=== PATIENT | female | born 1965 | race Caucasian/White ===

== ENCOUNTER 2021-05-22 23:41 | Inpatient (IN) | payer MEDICARE, OTHER ==
[~2021-05-22] VITALS: Ht 165.1 cm; Wt 82.1 kg
--- NOTE | 2021-05-22 23:46 | NUR ---
Patient BIB Ambul[facility] unit [address] [facility] to have PET TEAM eval d/t screaming, yelling and attempting to elope at the facility. No SOB or labored breathing. Afebrile. Denies CP/pressure. No GI/ distress. Patient currently calm and cooperative. A/O x2-3. Patient not in any distress at this moment. Bed in lowest position and educated about safety precautions.
--- NOTE | 2021-05-22 23:49 | NUR ---
Dr. Thakur at bedside, MSE in progress.
[2021-05-23 00:38] LABS: *BILIRUBIN,URIN NEGATIVE (NEGATIVE); *BLOOD, URINE NEGATIVE (NEGATIVE); *CLARITY,URINE CLEAR (CLEAR); *KETONES,URINE NEGATIVE (NEGATIVE); *UROBILINOGEN,URINE 0.2 E.U./dl (NORMAL); LEUKOCYTE ESTERASE ,URINE NEGATIVE (NEGATIVE); NITRITE, URINE NEGATIVE (NEGATIVE); PH,URINE 7.5 (5.0-8.0); UGLUCOSE NEGATIVE (NEGATIVE)
[2021-05-23 00:44] LABS: *COLOR,URINE STRAW (YELLOW)
--- NOTE | 2021-05-23 00:49 | NUR ---
Called Kimmy from crisis team, no answer, left voicemail.
[2021-05-23] MEDS ORDERED: humulin R SUBCUT (00:55)
[2021-05-23] MEDS ORDERED: BENZ1TAB7 PO (00:55)
[2021-05-23] MEDS ORDERED: MAGN400O6 PO (00:55)
[2021-05-23] MEDS ORDERED: OXCA300T4 PO (00:55)
[2021-05-23] MEDS ORDERED: HALO10TA13 PO (00:55)
[2021-05-23] MEDS ORDERED: NA P133E RC (00:55)
[2021-05-23] MEDS ORDERED: OXCA600T5 PO (00:55)
[2021-05-23] MEDS ORDERED: HALO5TAB PO (00:55)
[2021-05-23] MEDS ORDERED: ACET-2154 PO (00:55)
[2021-05-23] MEDS ORDERED: BISA10SU61 RC (00:55)
--- NOTE | 2021-05-23 00:59 | NUR ---
Called Delaney from crisis team, stated her ETA is around 0200.
--- NOTE | 2021-05-23 01:23 | NUR ---
Patient started to get aggitated and attempted de-esculation techniques. Offered patient fluids, food and restroom privilages, decreased stimuli. Provided patient with safe environment and re-orientated to reality.
--- NOTE | 2021-05-23 01:41 | NUR ---
Delaney from crisis team at bedside to evaluate patient.
[2021-05-23] MEDS ORDERED: HALOPERIDOL LACTATE 5 MG/1 ML VIAL IM ONE (02:00)
[2021-05-23] MEDS ORDERED: LORAZEPAM 2 MG/1 ML VIAL IM ONE (02:00)
[2021-05-23] MEDS ORDERED: diphenhydrAMINE 50 MG/1 ML VIAL IM ONE (02:00)
[2021-05-23] MEDS ORDERED: LORAZEPAM 2 MG/1 ML VIAL ONE (02:04)
[2021-05-23] MEDS ORDERED: diphenhydrAMINE 50 MG/1 ML VIAL ONE (02:04)
[2021-05-23] MEDS ORDERED: HALOPERIDOL LACTATE 5 MG/1 ML VIAL ONE (02:04)
--- NOTE | 2021-05-23 03:03 | NUR ---
Gave report to [facility].
[2021-05-23 03:35] VITALS: BP 128/76
--- NOTE | 2021-05-23 03:36 | NUR ---
Pt. admitted to [facility]HU , under care of Dr. St and Dr. Boyce Dx: psychosis Belongs List completed
--- NOTE | 2021-05-23 04:19 | NUR ---
GPS: Admitted to unit earlier a 55 yr.old female under the care of /Parviz FARAH. Pt.is on a 72 hour hold for DTO/GD. Pt.was agitated,violent, had flight of ideas,yelling and trying to elope from her residential facility,per hold. Pt.is anxious,confused but manageable/re-directable upon admission. Pt.received emergency IM's in the E.R. prior to being transported to mhu. Skin assessment done/personal belongings list completed. Unit rules explained. Pt's advisement and pt's rights booklet given. Fall precautions initiated. Behavior monitoring continues.
[2021-05-23] MEDS ORDERED: LORAZEPAM 0.5 MG TABLET PO PRN (04:30)
[2021-05-23] MEDS ORDERED: MAGNESIUM HYDROXIDE 30 ML LIQUID UDC PO PRN (04:30)
[2021-05-23] MEDS ORDERED: ACETAMINOPHEN 325 MG TABLET PO PRN (04:30)
[2021-05-23] MEDS ORDERED: BLOOD SUGAR DIAGNOSTIC 1 EACH STRIP VI ONE (04:30)
--- NOTE | 2021-05-23 07:22 | NUR ---
EPIC EXCHANGE WAS CALLED TO NOTIFY DOCTOR TO RECONCILE THE MEDICATIONS.
[2021-05-23 07:30] VITALS: BP 124/61
--- NOTE | 2021-05-23 08:24 | NUR ---
Firearms Report: Retread Technician completed and submitted a [employer] firearms report for 5150 grave disability certification. A copy of report has been placed in patient chart.
--- NOTE | 2021-05-23 09:54 | NUR ---
SW Initial Discharge Plan: [facility] [place] [address]; ). This SW spoke with admin CJ who stated that pt will need a locked nursing facility. This SW attempted to contact [facility]ose[facility] ([phone]) but the number does not exist. SW will coordinate with pt and MD to help coordinate proper discharge.
--- NOTE | 2021-05-23 09:55 | NUR ---
SW Family Contact: This SW attempted to contact [facility]ose[facility] ([phone]) but the number does not exist.
--- NOTE | 2021-05-23 10:02 | NUR ---
Treatment Plan: Pt refused to sign treatment plan and was verbally aggressive.
[2021-05-23] MEDS: OXCARBAZEPINE 300 MG TABLET PO SCH ×4 (10:18→20:06)
--- NOTE | 2021-05-23 11:31 | NUR ---
Social Work Note/Substance Abuse Intervention: SW attempted to provided with a brief substance abuse intervention and referred to [facility] ([phone]), [facility] ([phone]), and [facility] ([phone]) for hx of amphetamine abuse. Pt refused to answer any questions.
[2021-05-23] MEDS: HALOPERIDOL 5 MG TABLET PO SCH ×2 (14:39→20:06)
[2021-05-23 15:17] VITALS: BP 153/87
[2021-05-23] MEDS ORDERED: BISACODYL 10 MG SUPP.RECT RC PRN (17:30)
[2021-05-23] MEDS ORDERED: FLEET ENEMA 133 ML BOTTLE RC PRN (17:30)
[2021-05-23 20:09] VITALS: BP 119/74
[2021-05-23] MEDS ORDERED: HALOPERIDOL 2 MG TABLET PO SCH (21:00)
--- NOTE | 2021-05-24 01:25 | NUR ---
GPS: Pt.still awake at this time. Talking to self and delusional. Easily irritable when being re-directed. Refused Ativan PO or Restoril when offered for sleep. Re-directed prn. Behavior monitoring continues for further escalation.
[2021-05-24] MEDS: OXCARBAZEPINE 300 MG TABLET PO SCH ×4 (08:59→20:29)
[2021-05-24] MEDS: HALOPERIDOL 5 MG TABLET PO SCH ×4 (08:59→20:29)
--- NOTE | 2021-05-24 12:12 | NUR ---
dr baron here to see patient with new orders and noted.
--- NOTE | 2021-05-24 12:52 | NUR ---
SNF Referral: This SW faxed patient's clinicals to [facility] for placement option ([phone]).
[2021-05-24 16:00] VITALS: BP 149/92
--- NOTE | 2021-05-24 18:00 | NUR ---
ALERT TO SELF WALKING UP AND DOWN THE [address] WAY GOING INTO OTHER PATIENTS ROOMS AND ON TWO OCCASIONS PULLED DOWN HER PANTS AND SHOWING HER BUTTOCKS HELPED AND ENCOURAGED TO LEAVE HER PANTS ON TO MAINTAIN PRIVACY.
[2021-05-24] MEDS: LORAZEPAM 1 MG TABLET PO PRN (19:27)
--- NOTE | 2021-05-24 19:27 | NUR ---
PATIENT NOTED TO BE AGGRESSIVE PUSHED ANOTHER PATIENT FOR NO REASON PATIENT TAKEN TO HER ROOM AND MEDICATED WITH ATIVAN ORDERED PATIENT ENCOURAGED TO STAY IN HER ROOM FOR THE MEAN TIME TO CALM DOWN AND SHE AGREED.
[2021-05-24 20:18] VITALS: BP 129/56
--- NOTE | 2021-05-25 02:00 | NUR ---
PATIENT IN BED SLEEPING AND RESTING WELL AT THIS TIME.
--- NOTE | 2021-05-25 06:47 | NUR ---
PATIENT SLEPT AT LONG INTERVALS EASILY AROUSABLE ON ROUNDS WAS QUIET WITH NO BEHAVIOR ISSUES AT THIS TIME.WILL CONTINUE TO OBSERVE AND PROVIDE SAFE AND THERAPEUTIC ENVIRONMENT AT ALL TIMES.
[2021-05-25 07:30] VITALS: BP_SYST 130; BP_DIAS 60; BP_DIAS 65
[2021-05-25] MEDS: OXCARBAZEPINE 300 MG TABLET PO SCH ×4 (09:11→21:10)
[2021-05-25] MEDS: HALOPERIDOL 5 MG TABLET PO SCH ×4 (09:11→21:10)
--- NOTE | 2021-05-25 12:08 | NUR ---
PILAR Individual Therapy: yarn worker met with patient for brief counseling to help address patients presenting problem paranoid thought content. Patient appears paranoid and delusional. Pt constantly calling this jingle writer "Nicol". Pt unable to have proper conversation due to her paranoia.
[2021-05-25 13:00] VITALS: BP 155/87
[2021-05-25 20:00] VITALS: BP 137/70
--- NOTE | 2021-05-26 06:27 | NUR ---
GPS: REMAIN CALM AND COOPERATIVE WITH MEDS AND CARE. SLEPT 10.45 HRS THROUGH THE NIGHT. NO BEHAVIOR ISSUES AT THIS TIME.WILL CONTINUE TO OBSERVE AND PROVIDE SAFE AND THERAPEUTIC ENVIRONMENT AT ALL TIMES.
[2021-05-26 07:30] VITALS: BP 111/51
[2021-05-26] MEDS: OXCARBAZEPINE 300 MG TABLET PO SCH ×4 (09:42→20:32)
[2021-05-26] MEDS: HALOPERIDOL 5 MG TABLET PO SCH ×4 (09:42→20:32)
--- NOTE | 2021-05-26 14:00 | NUR ---
Gps/Chief Cruiser- Patient pacing back and forth the hallway, laughing and tends to talked to herself. Needing redirections, compliant with routine meds.
[2021-05-26 16:00] VITALS: BP 117/59
[2021-05-26 20:09] VITALS: BP 120/81
[2021-05-26] MEDS: TEMAZEPAM 7.5 MG CAPSULE PO PRN (21:37)
[2021-05-27] MEDS: LORAZEPAM 1 MG TABLET PO PRN (04:10)
--- NOTE | 2021-05-27 04:12 | NUR ---
patient c/o anxiety. ativan 1 mg po given.
--- NOTE | 2021-05-27 05:12 | NUR ---
PATIENT IS RESTING ON BED QUIETLY. PRN FOR ANXIETY EFFECTIVE.
--- NOTE | 2021-05-27 05:53 | NUR ---
GPS: REMAIN CALM AND COOPERATIVE WITH MEDS AND CARE. SLEPT 6 HRS THROUGH THE NIGHT AFTER SLEEPING MEDS GIVEN. NO BEHAVIOR ISSUES AT THIS TIME. WILL CONTINUE TO OBSERVE AND PROVIDE SAFE AND THERAPEUTIC ENVIRONMENT AT ALL TIMES. CONTINUE. CONTINUE PLAN OF CARE.
[2021-05-27 08:12] VITALS: BP 145/76
[2021-05-27] MEDS: HALOPERIDOL 5 MG TABLET PO SCH ×4 (08:48→20:19)
[2021-05-27] MEDS: OXCARBAZEPINE 300 MG TABLET PO SCH ×4 (08:48→20:19)
--- NOTE | 2021-05-27 14:37 | NUR ---
Gps/Oral Pathologist- Had been quiet most of the morning, cooperative and had been redirectable, compliant with her routine meds. Prompted to attend her group tx
[2021-05-27 15:59] VITALS: BP 125/65
[2021-05-27 20:14] VITALS: BP 136/71
[2021-05-28] MEDS: MAG HYDROX/AL HYDROX/SIMETH 30 ML LIQUID UDC PO PRN (00:55)
--- NOTE | 2021-05-28 07:25 | NUR ---
PATIENT REFUSED BLOOD DRAWN. MULTIPLE REDIRECTION GIVEN INCLUDING THE NEED TO COMPLY WITH LABS TO IMPROVE HER HEALTH, YET INEFFECTIVE. SHE STATED, "I AM JEW OF THE LATE DAYS AND MY RELIGIONS DOES NOT PERMIT BLOOD TAKEN FORM ME, I KNOW MY RIGHTS AND YOU CAN'T FORCE ME". WILL CONTINUE TO MONITOR.
[2021-05-28 08:03] VITALS: BP 133/76
[2021-05-28] MEDS: HALOPERIDOL 5 MG TABLET PO SCH ×4 (08:07→20:30)
[2021-05-28] MEDS: OXCARBAZEPINE 300 MG TABLET PO SCH ×4 (08:07→20:30)
[2021-05-28 16:00] VITALS: BP 131/81
[2021-05-28 20:00] VITALS: BP 132/81
[2021-05-28] MEDS: LORAZEPAM 1 MG TABLET PO PRN (20:30)
--- NOTE | 2021-05-29 06:56 | NUR ---
Patient slept 6.45 hours and was up early this morning for a shower because she wet the bed. Tech Intern did not notice any preoccupation with internal stimuli. Continuing to monitor for behavior escalation.
[2021-05-29 07:30] VITALS: BP 123/56
[2021-05-29] MEDS: HALOPERIDOL 5 MG TABLET PO SCH ×4 (09:42→20:05)
[2021-05-29] MEDS: OXCARBAZEPINE 300 MG TABLET PO SCH ×4 (09:43→20:05)
[2021-05-29] MEDS: MAG HYDROX/AL HYDROX/SIMETH 30 ML LIQUID UDC PO PRN (12:59)
[2021-05-29 15:15] VITALS: BP 117/74
[2021-05-29 20:12] VITALS: BP 126/82
[2021-05-30 07:30] VITALS: BP 158/89
[2021-05-30] MEDS: HALOPERIDOL 5 MG TABLET PO SCH ×4 (08:12→20:08)
[2021-05-30] MEDS: OXCARBAZEPINE 300 MG TABLET PO SCH ×4 (08:12→20:08)
--- NOTE | 2021-05-30 11:55 | NUR ---
Court Hearing: Patient's court hearing for 0620 was today and it was upheld for GD and danger to others.
[2021-05-30] MEDS: MAG HYDROX/AL HYDROX/SIMETH 30 ML LIQUID UDC PO PRN (12:28)
--- NOTE | 2021-05-30 13:10 | NUR ---
Social Work Note/Substance Abuse Intervention: Patient was provided with a brief substance abuse intervention and referred to [facility] ([phone]), [facility] ([phone]), and [facility] ([phone]).
[2021-05-30 15:09] VITALS: BP 115/59
[2021-05-30 20:19] VITALS: BP 126/72
[2021-05-31 07:30] VITALS: BP 130/65
--- NOTE | 2021-05-31 07:30 | NUR ---
NURSE REPORT Report given by night nurse Britany and this nurse assume care of patient. Received patient awake and alert. Ambulatory. VSS. Afeb. No c/o pain or discomfort.
[2021-05-31] MEDS: OXCARBAZEPINE 300 MG TABLET PO SCH ×4 (09:19→20:59)
[2021-05-31] MEDS: HALOPERIDOL 5 MG TABLET PO SCH ×3 (09:19→21:02)
--- NOTE | 2021-05-31 13:00 | NUR ---
NURSE CARE Patient taking meds whole. No c/o pain or discomfort. Not talkiing loudly this am.
--- NOTE | 2021-05-31 14:52 | NUR ---
NURSE REPORT Report given to charge nurse Kay to assume care of patient. SBAR given. Charge nurse aware of patient. Sanaz Jackson RN
--- NOTE | 2021-05-31 15:02 | NUR ---
SNF Contact: This SW received a call from [facility] admin from [facility] for who stated they cannot accept pt due to behavior issues.
--- NOTE | 2021-05-31 15:03 | NUR ---
Autocad Designer Contact: This SW sent clinicals to colby Davison for SNF placement and he stated [facility] and [facility] denied pt. Saman stated that [facility] accepted pt.
--- NOTE | 2021-05-31 15:29 | NUR ---
Individual Therapy: reinforcing iron and rebar workers met with patient for brief counseling on patient's presenting problem paranoid thought content. Pt appears paranoid and delusional. Pt laughing inappropriately. Pt calling this SW "Nicol". Pt unable to focus to conduct therapy at this time.
[2021-05-31] MEDS: MAG HYDROX/AL HYDROX/SIMETH 30 ML LIQUID UDC PO PRN (15:46)
[2021-05-31 16:06] VITALS: BP 151/82
[2021-05-31 20:17] VITALS: BP 146/68
--- NOTE | 2021-06-01 07:25 | NUR ---
NURSE REPORT Report obtained from night nurse Michelle and this nurse assumed care of patient. No c/o pain or discomfort.
[2021-06-01 07:30] VITALS: BP 153/82
[2021-06-01] MEDS: HALOPERIDOL 5 MG TABLET PO SCH ×3 (09:28→21:03)
[2021-06-01] MEDS: OXCARBAZEPINE 300 MG TABLET PO SCH ×4 (09:28→21:03)
[2021-06-01 16:00] VITALS: BP 151/72
--- NOTE | 2021-06-01 16:00 | NUR ---
NURSE NOTES VSS. Afeb. BP 151/72. On Haldol and Trileptall. No c/o pain or discomfort. Ambulates in hallway or in room.
--- NOTE | 2021-06-01 19:27 | NUR ---
NURSE REPORT Report given to anne nurse Michelle to assume care of patient. Kardex given. VSS. Afeb. BP 151/72 and 153/89. Not sure what happened with one of the nurse aide. She stated she was making her rounds, and the patient started chasing after her. She hid behind the BP machines and patient found her, stating "I don't k now why you are doing that to me. Patient starting yelling "I demand to be transferred to [facility]." Sanaz Jackson
[2021-06-01 20:20] VITALS: BP 155/86
[2021-06-02 07:30] VITALS: BP 123/57
[2021-06-02] MEDS: HALOPERIDOL 5 MG TABLET PO SCH ×3 (08:17→20:29)
[2021-06-02] MEDS: OXCARBAZEPINE 300 MG TABLET PO SCH ×4 (08:17→20:29)
[2021-06-02 16:00] VITALS: BP 119/60
[2021-06-02] MEDS: MAG HYDROX/AL HYDROX/SIMETH 30 ML LIQUID UDC PO PRN (18:46)
[2021-06-02 21:39] VITALS: BP 142/70
--- NOTE | 2021-06-03 01:07 | NUR ---
RECEIVED HER IN BED. CALM AND COOPERATIVE WITH MEDS AND CARE. MOOD LABILE. VISUAL CHECKS MADE ON HER FOR SAFETY.WILL CONTINUE TO MONITOR.O.
--- NOTE | 2021-06-03 06:15 | NUR ---
SHE SLEPT FOR 7:45 HOURS.
[2021-06-03] MEDS: MAG HYDROX/AL HYDROX/SIMETH 30 ML LIQUID UDC PO PRN (06:27)
[2021-06-03 08:09] VITALS: BP 133/71
[2021-06-03] MEDS: HALOPERIDOL 5 MG TABLET PO SCH ×3 (08:58→20:21)
[2021-06-03] MEDS: OXCARBAZEPINE 300 MG TABLET PO SCH ×4 (08:58→20:21)
[2021-06-03 16:33] VITALS: BP 155/87
[2021-06-03 20:00] VITALS: BP 138/76
--- NOTE | 2021-06-04 06:18 | NUR ---
This patient was up early and took a shower. Knot Picker Cloth noticed the patient was hyper and delusional but not aggressive. [place] bright affect. Patient slept 5.15 hours last night. No acute behavioral issues at this time. Monitoring for any escalation.
[2021-06-04 07:56] VITALS: BP 122/69
[2021-06-04] MEDS: HALOPERIDOL 5 MG TABLET PO SCH ×3 (09:10→20:04)
[2021-06-04] MEDS: OXCARBAZEPINE 300 MG TABLET PO SCH ×4 (09:10→20:04)
[2021-06-04 17:01] VITALS: BP 145/70
[2021-06-04] MEDS: LORAZEPAM 1 MG TABLET PO PRN (20:04)
[2021-06-04 20:15] VITALS: BP 134/68
[2021-06-05 07:30] VITALS: BP 127/81
[2021-06-05] MEDS: OXCARBAZEPINE 300 MG TABLET PO SCH ×4 (08:43→20:21)
[2021-06-05] MEDS: MAG HYDROX/AL HYDROX/SIMETH 30 ML LIQUID UDC PO PRN (08:43)
[2021-06-05] MEDS: HALOPERIDOL 5 MG TABLET PO SCH ×3 (08:43→20:21)
[2021-06-05 15:45] VITALS: BP 161/92
[2021-06-05] MEDS: OLANZAPINE 2.5 MG TABLET PO SCH (18:01)
[2021-06-05 20:43] VITALS: BP 152/78
[2021-06-06] MEDS: LORAZEPAM 1 MG TABLET PO PRN (04:02)
--- NOTE | 2021-06-06 04:05 | NUR ---
GPS: Pt.is anxious,paranoid,suspicious,delusional and intrusive. Easily irritable when being re-directed. Poor insight to present situation. Encouraged to get more sleep/rest. Talking to herself inside her room. Ativan 1mg PO given. Will monitor effectiveness.
[2021-06-06 07:30] VITALS: BP 156/77
[2021-06-06] MEDS: OXCARBAZEPINE 300 MG TABLET PO SCH ×4 (08:19→20:09)
[2021-06-06] MEDS: HALOPERIDOL 5 MG TABLET PO SCH ×3 (08:19→20:08)
[2021-06-06] MEDS: OLANZAPINE 2.5 MG TABLET PO SCH ×2 (08:19→16:27)
--- NOTE | 2021-06-06 10:41 | NUR ---
Individual Therapy: plastics factory worker met with patient for brief counseling on patient's presenting problem paranoid thought content. Pt appears paranoid and delusional. Pt blankly staring at this SW and did not want to conduct therapy at this time.
--- NOTE | 2021-06-06 13:01 | NUR ---
[facility] Contact: This SW contacted admissions ([phone]) per pt's request stated they are not a psych facility and they are not locked. This SW spoke with continuous still operator.
--- NOTE | 2021-06-06 13:11 | NUR ---
SW Note: This SW spoke with pt and stated that [facility] is not taking psych patients and that they not a locked facility. This SW informed pt this information. This SW expressed that she is accepted at [facility] and she was agreeable with this.
[2021-06-06 15:50] VITALS: BP 133/61
[2021-06-06 20:13] VITALS: BP 130/68
[2021-06-07 07:30] VITALS: BP 120/64
[2021-06-07] MEDS: OLANZAPINE 2.5 MG TABLET PO SCH ×2 (09:09→17:52)
[2021-06-07] MEDS: OXCARBAZEPINE 300 MG TABLET PO SCH ×4 (09:09→20:46)
[2021-06-07] MEDS: HALOPERIDOL 5 MG TABLET PO SCH ×3 (09:09→20:46)
[2021-06-07 16:00] VITALS: BP 140/82
--- NOTE | 2021-06-07 19:12 | NUR ---
left in bed AAOX4. vitals stable no c/of pain compliant with medications.
[2021-06-07 20:21] VITALS: BP 150/80
[2021-06-08] MEDS: MAG HYDROX/AL HYDROX/SIMETH 30 ML LIQUID UDC PO PRN (03:08)
[2021-06-08 07:30] VITALS: BP 130/58
[2021-06-08] MEDS: HALOPERIDOL 5 MG TABLET PO SCH ×3 (08:14→20:35)
[2021-06-08] MEDS: OXCARBAZEPINE 300 MG TABLET PO SCH ×4 (08:14→20:36)
--- NOTE | 2021-06-08 09:41 | NUR ---
Received pt. AAOx4. vitals stable no c/of pain compliant with schedule medications and ate breafast with no complains. Will continue with care plan.
[2021-06-08 16:00] VITALS: BP 107/54
[2021-06-08 20:00] VITALS: BP 114/73
--- NOTE | 2021-06-09 06:15 | NUR ---
Patient slept 8.15 hrs.Compliant with medication and care. No episodes of aggressive behaviors.
[2021-06-09 07:51] VITALS: BP 126/76
[2021-06-09] MEDS: OXCARBAZEPINE 300 MG TABLET PO SCH ×4 (08:12→20:12)
[2021-06-09] MEDS: HALOPERIDOL 5 MG TABLET PO SCH ×3 (08:12→20:12)
[2021-06-09 13:00] VITALS: BP 160/90
[2021-06-09] MEDS: ARIPIPRAZOLE 5 MG TABLET PO SCH ×2 (16:30→20:11)
[2021-06-09] MEDS: LORAZEPAM 1 MG TABLET PO PRN (20:12)
[2021-06-09 20:13] VITALS: BP 121/76
[2021-06-09] MEDS: MAG HYDROX/AL HYDROX/SIMETH 30 ML LIQUID UDC PO PRN (21:41)
--- NOTE | 2021-06-10 05:11 | NUR ---
Received the patient at the beginning of the shift pacing up and down the brenner. When credit underwriter talked with the patient it was clear that the patient was having delusions and hallucinations. When trying to engage in any meaningful conversation, the patients speech was tangental. The patient was not aggressive however and was easily redirectable. The patient is medication compliant, but preoccupied by internal stimuli. Continuing to monitor the patient for safety and behavior escalation d/t previous labile episodes.
[2021-06-10 07:33] VITALS: BP 141/72
[2021-06-10] MEDS: ARIPIPRAZOLE 5 MG TABLET PO SCH ×4 (08:03→20:11)
[2021-06-10] MEDS: HALOPERIDOL 5 MG TABLET PO SCH ×3 (08:03→20:09)
[2021-06-10] MEDS: OXCARBAZEPINE 300 MG TABLET PO SCH ×4 (08:03→20:10)
[2021-06-10 16:33] VITALS: BP 144/86
[2021-06-10] MEDS: TEMAZEPAM 7.5 MG CAPSULE PO PRN (23:08)
[2021-06-10] MEDS: LORAZEPAM 1 MG TABLET PO PRN (23:09)
--- NOTE | 2021-06-11 05:53 | NUR ---
Patient slept 0.00 hours last night. All night long the patient was antagonizing the staff, paranoid and accusatory remarks were made. Patient was difficult to redirect. Multiple requests for food. Inappropriate interactions with peers. The patients room mate was moved because this patient would not stop talking and would not turn the light off. At one point the patient banged her head against the wall. The business writer attempted to calm the patient and provide reassurance. The patient refuses to take Abilify and needed prompting and encouragement to take other medications. Children'S Nursery Assistant monitoring the patient closely for behavior escalation and monitoring the patients interactions, making sure they do not upset the unit. Firm limits have been set with this patient at this time.
[2021-06-11 07:30] VITALS: BP 160/80
[2021-06-11] MEDS: ARIPIPRAZOLE 5 MG TABLET PO SCH ×4 (08:00→20:48)
[2021-06-11] MEDS: OXCARBAZEPINE 300 MG TABLET PO SCH ×4 (08:05→20:29)
[2021-06-11] MEDS: HALOPERIDOL 5 MG TABLET PO SCH ×3 (08:05→20:29)
--- NOTE | 2021-06-11 08:24 | NUR ---
PT NOTED QUITE PSYCHOTIC AT THIS TIME. PACING UNIT HALLWAY, TALKING TO SELF, LOUDLY RESPONDING TO INTERNAL STIMULI. PT IS FREQUENTLY INAPPROPRIATELY LAUGHING UNCONTROLLABLY. EXTREMELY PARANOID AND DELUSIONAL. PT QUITE NONSENSICAL WITH RESPONSES, VERY BIZARRE. PT IS DIFFICULT TO REDIRECT AT TIMES AND CAN GET QUITE AGITATED. PT REFUSED AM ABILIFY AT THIS TIME.
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
[2021-06-11 16:00] VITALS: BP 168/90
[2021-06-11 19:57] VITALS: BP 166/78
[2021-06-11] MEDS: MAG HYDROX/AL HYDROX/SIMETH 30 ML LIQUID UDC PO PRN (20:29)
[2021-06-11] MEDS: LORAZEPAM 1 MG TABLET PO PRN (20:43)
[2021-06-11] MEDS ORDERED: diphenhydrAMINE 50 MG/1 ML VIAL IM ONE (21:30)
[2021-06-11] MEDS ORDERED: LORAZEPAM 2 MG/1 ML VIAL IM ONE (21:30)
[2021-06-11] MEDS ORDERED: HALOPERIDOL LACTATE 5 MG/1 ML VIAL IM ONE (21:30)
--- NOTE | 2021-06-11 23:59 | NUR ---
GPS MEDICATION ADMINISTRATION CLARIFICATION : All medications given to this patient on 06/11/21 from 1900 till now were given by this proposal writer.
[2021-06-12] MEDS: TEMAZEPAM 7.5 MG CAPSULE PO PRN (01:14)
--- NOTE | 2021-06-12 04:01 | NUR ---
Received patient at the start of the shift pacing in the brenner and talking to other patient and staff using vulgar language. The patients behavior escalated to the point where she was banging her head against the wall, crawling on the floor, yelling profanities and not responding to any limit setting. The patient continued to disrupt the unit by going into other patients rooms and climbing in the bed with them. The oral routine medications had zero affect on this patient, even the PRN medications were noneffective. Dr. Bettencourt was notified and orders were received for an IM injection. When the time came to give the medication, the patient was found in a corner of another patients room, laying on the floor, without any cloths on the lower half of her body and legs spread wide open. It took multiple staff and security to get the patient off the floor. After the injection this patient continued with the same behavior. Paranoid , hyperverbal speech. Angry and aggressive. The patient was monitored at the nurses station for many hours. Yelling at everyone and still threatening staff , spewing crude comments and trying to hide. Eventually this rewriter went with the patient to her room and stayed there , monitoring her closely. VS remained stable. Patient remained in her room, responding to internal stimuli for some time and now fell asleep. Bed alarm is on for safety. This rewriter noted that the patient has not sleep for 36 or more hours by this time.
[2021-06-12 07:30] VITALS: BP 131/74
--- NOTE | 2021-06-12 07:34 | NUR ---
GPS NOTE; This patient had an order last night from Dr. Bettencourt for 1mg of Ativan IM. one time dose. Medication was removed from the Pyxis and Philly Bolton RN witnessed the waste of 1mg from the 2MG Vial. Discrepancy resolved at this time.
[2021-06-12] MEDS: OXCARBAZEPINE 300 MG TABLET PO SCH ×5 (08:42→21:02)
[2021-06-12] MEDS: ARIPIPRAZOLE 5 MG TABLET PO SCH ×4 (08:42→21:01)
[2021-06-12] MEDS: HALOPERIDOL 5 MG TABLET PO SCH ×4 (08:42→21:01)
[2021-06-12] MEDS: OLANZAPINE ZYDIS 5 MG TAB.RAPDIS PO SCH ×2 (11:30→16:18)
--- NOTE | 2021-06-12 14:55 | NUR ---
Court Hearing: Patient's court hearing for 30 day was today and it was upheld for GD.
[2021-06-12 15:06] VITALS: BP 125/72
--- NOTE | 2021-06-12 15:33 | NUR ---
GPS: Nursing Notes: Mood Disturbance: Manic or Labile: Patient is awake and responding to her name, poor impulse control, gets easily irritable when redirected, believes that she is the [facility], refusing her Zyprexa PO at 12:45, "No, I do not take that medication..", "I am the [facility]..", redirected and reoriented during shift, forgetful at times, loud and pressured speech, resistant with nursing care, believes that she is leaving today, stated "Call [employer].. I am leaving... I am not staying here for 30 days.. I am the [facility]..", unable to formulate a viable plan for self care, continue with treatment plan.
[2021-06-12] MEDS: LORAZEPAM 1 MG TABLET PO PRN (19:49)
[2021-06-12 20:03] VITALS: BP 132/70
--- NOTE | 2021-06-13 05:44 | NUR ---
Received Pt in bed sleeping arouses easily. Appeared depressed and guarded, did not want to speak to staff initially. When approached later, Pt was more receptive and friendly, and took her medications at that time. Pt was withdrawn and isolative for the entire shift, refusing snacks, and refusing to come out of her room. Appears internally preoccupied, exhibits blunted affect, and gives minimal disclosure. Able to verbally contract for safety. VS stable, denied pain.
[2021-06-13 07:30] VITALS: BP 143/67
[2021-06-13] MEDS: OXCARBAZEPINE 300 MG TABLET PO SCH ×4 (08:29→20:08)
[2021-06-13] MEDS: HALOPERIDOL 5 MG TABLET PO SCH ×3 (08:29→20:08)
[2021-06-13] MEDS: OLANZAPINE ZYDIS 5 MG TAB.RAPDIS PO SCH ×2 (08:29→17:04)
[2021-06-13] MEDS: ARIPIPRAZOLE 5 MG TABLET PO SCH ×3 (08:29→20:09)
[2021-06-13 15:54] VITALS: BP 119/59
[2021-06-13 20:05] VITALS: BP 124/74
--- NOTE | 2021-06-13 22:28 | NUR ---
Received patient in her bed, med compliant, interacts with staff and certain peers. Patient has semi fair insight and semi fair judgment. Patient will remain in a psych facility for further evaluation and treatment.
[2021-06-14 07:51] VITALS: BP 90/42
[2021-06-14] MEDS: OLANZAPINE ZYDIS 5 MG TAB.RAPDIS PO SCH ×2 (10:04→18:18)
[2021-06-14] MEDS: OXCARBAZEPINE 300 MG TABLET PO SCH ×4 (10:04→20:38)
[2021-06-14] MEDS: ARIPIPRAZOLE 5 MG TABLET PO SCH ×3 (10:04→20:37)
[2021-06-14] MEDS: HALOPERIDOL 5 MG TABLET PO SCH ×3 (10:12→20:38)
--- NOTE | 2021-06-14 10:54 | NUR ---
Individual Therapy: grease rack worker met with patient for brief counseling on patient's presenting problem paranoid thought content. Pt appears less paranoid thoughts. Patient appeared to be quiet and was sleepy. Pt did not want to conduct therapy at this time.
[2021-06-14 15:37] VITALS: BP 130/68
[2021-06-14 21:02] VITALS: BP 117/58
[2021-06-15 07:30] VITALS: BP 114/54
--- NOTE | 2021-06-15 08:05 | NUR ---
DISCHARGE NOTE: Patient will be discharged to shelter facility, [address] [address] ([phone]) via ambulance transportation at 12PM. odd jobs day worker spoke with Admin ([phone]), who stated patient will be accepted at the facility today. Patient does not have any family members at this time. Patient is alert and oriented x2 and is unable to plan for self-care. Patient denies any suicidal or homicidal ideation. Patient is aware and agreeable with discharge plans. Patient will continue to follow-up with (Psychiatrist) Dr. St and (Tack Picker) Dr. Romano at [facility]. Patient was provided with resources to [facility] ([phone]), [facility] ([phone]), and [facility] ([phone]) for alcohol abuse. Patient presents with euthymic mood and congruent affect.
[2021-06-15] MEDS: OXCARBAZEPINE 300 MG TABLET PO SCH ×2 (08:38→12:13)
[2021-06-15] MEDS: OLANZAPINE ZYDIS 5 MG TAB.RAPDIS PO SCH (08:38)
[2021-06-15] MEDS: ARIPIPRAZOLE 5 MG TABLET PO SCH (08:38)
[2021-06-15] MEDS: HALOPERIDOL 5 MG TABLET PO SCH (08:46)
[2021-06-15] MEDS: MAG HYDROX/AL HYDROX/SIMETH 30 ML LIQUID UDC PO PRN (08:49)
--- NOTE | 2021-06-15 13:54 | NUR ---
Discharged patient to [facility], AOx2. On room air. vital signs WNL. No signs of acute distress. Patient denies SI/ HI. Patient denies pain/ discomfort. Discharge documents signed. Belongings accounted for and belongings list signed. ID armband removed. Patient left unit via ambulance gurney. Nursing report given to VERENICE Lowery of [facility].
== END 2021-06-15 13:40 | DRG 885 ==
LOC: ER 23:54 → GPS 05-23 02:59
PROVIDERS: ADMIT Psychiatry & Neurology Psychosomatic Medicine; ATTEND Internal Medicine
DX: F25.0 Schizoaffective disorder, bipolar type (principal); Z59.0 Homelessness; E66.9 Obesity, unspecified; Z68.31 Body mass index [BMI] 31.0-31.9, adult; Z91.19 Patient's noncompliance with other medical treatment and regimen; F09 Unspecified mental disorder due to known physiological condition; F15.11 Other stimulant abuse, in remission
CPT/HCPCS: J1200; J1630; J2060

== ENCOUNTER 2022-05-11 14:03 | Inpatient (IN) | payer MEDICARE, OTHER ==
[~2022-05-11] VITALS: Ht 165.1 cm; Wt 85.7 kg
[~2022-05-11 14:03] MED LIST: ACET-2154 PO; BISA10SU61 RC; MAGN400O6 PO; NA P133E RC; humulin R SUBCUT
[2022-05-11] MEDS ORDERED: LORAZEPAM 2 MG/1 ML VIAL IM ONE (14:30)
[2022-05-11] MEDS ORDERED: ZIPRASIDONE MESYLATE 20 MG VIAL IM ONE ×2 (14:30→14:35)
[2022-05-11] MEDS ORDERED: LORAZEPAM 2 MG/1 ML VIAL ONE (14:36)
[2022-05-11 15:17] LABS: *BILIRUBIN,URIN NEGATIVE (NEGATIVE); *BLOOD, URINE NEGATIVE (NEGATIVE); *CLARITY,URINE CLEAR (CLEAR); *COLOR,URINE LIGHT YELLOW (YELLOW); *KETONES,URINE NEGATIVE (NEGATIVE); *UROBILINOGEN,URINE 0.2 E.U./dl (NORMAL); LEUKOCYTE ESTERASE ,URINE NEGATIVE (NEGATIVE); NITRITE, URINE NEGATIVE (NEGATIVE); PH,URINE 5.5 (5.0-8.0); UGLUCOSE 2+ (NEGATIVE)
[2022-05-11] MEDS ORDERED: MIDAZOLAM HCL 2 MG/2 ML VIAL ONE (15:24)
[2022-05-11] MEDS ORDERED: MIDAZOLAM HCL 5 MG/ML VIAL ONE (15:25)
[2022-05-11 15:27] LABS: *AMPHETAMINE, URINE NEGATIVE (NEGATIVE); *CANNABINOID, URINE NEGATIVE (NEGATIVE); *COCCAINE, URINE NEGATIVE (NEGATIVE); *OPIATE, URINE NEGATIVE (NEGATIVE); *PHENCYCLIDINE SCREEN,URINE NEGATIVE (NEGATIVE)
[2022-05-11] MEDS ORDERED: MIDAZOLAM HCL 2 MG/2 ML VIAL IM ONE ×2 (15:30)
[2022-05-11] MEDS ORDERED: KETAMINE HCL 500 MG/10 ML INJ IM ONE (16:00)
[2022-05-11 16:07] LABS: HEMATOCRIT 35.5 % (31.2-41.9); MEAN CORPUSCULAR HEMOGLOBIN 28.1 uug (24.7-32.8); PLATELET COUNT (AUTO) 270 K/uL (179-408)
--- NOTE | 2022-05-11 16:10 | NUR ---
Versed effective, so ketamine not necessary. Used velcro restraints briefly while drawing labs, removed foot restraints right after. Pt fell asleep, wrist restraints removed about 5 minutes after.
[2022-05-11 16:12] LABS: CARBON DIOXIDE 30 mmol/L (21-32); CHLORIDE 102 mmol/L (98-107); CREATININE 0.7 mg/dL (0.6-1.3); GLUCOSE 229 mg/dL (74-106); POTASSIUM 3.9 mmol/L (3.5-5.1); UREA NITROGEN, BLOOD 17 mg/dL (7-18)
[2022-05-11 16:18] LABS: ACETAMINOPHEN < 2.0 ug/mL (10-30); ALANINE AMINOTRANSFERASE 28 U/L (14-59); ALKALINE PHOSPHATASE 91 U/L (50-136); ASPARTATE AMINOTRANSFERASE 8 U/L (15-37); BILIRUBIN,DIRECT < 0.1 mg/dL (0.0-0.2); BILIRUBIN,TOTAL 0.1 mg/dL (0.2-1.0); TOTAL PROTEIN, SERUM 7.3 g/dL (6.4-8.2)
[2022-05-11 16:22] LABS: ETHANOL < 3 MG/DL (0-0)
--- NOTE | 2022-05-11 17:26 | NUR ---
Pt medically cleared by Dr. Coon.
[2022-05-11] MEDS ORDERED: MAGNESIUM HYDROXIDE 30 ML LIQUID UDC PO PRN (20:15)
[2022-05-11] MEDS ORDERED: MAG HYDROX/AL HYDROX/SIMETH 30 ML LIQUID UDC PO PRN (20:15)
[2022-05-11] MEDS ORDERED: ACETAMINOPHEN 325 MG TABLET PO PRN (20:15)
[2022-05-11] MEDS ORDERED: BLOOD SUGAR DIAGNOSTIC 1 EACH STRIP VI ONE (20:30)
--- NOTE | 2022-05-11 20:40 | NUR ---
Pt transfered to [facility] by TEXTILE DESIGNS SALES REPRESENTATIVE via gourney with all belongings.
[2022-05-11] MEDS ORDERED: INSULIN REGULAR, HUMAN 300 UNIT/3 ML VIAL SQ PRN (20:45)
[2022-05-11] MEDS ORDERED: DEXTROSE 50% 50 ML DISP.SYRIN IV PRN (20:45)
[2022-05-11] MEDS ORDERED: FLEET ENEMA 133 ML BOTTLE RC PRN (20:45)
[2022-05-11] MEDS: BLOOD SUGAR DIAGNOSTIC 1 EACH STRIP VI SCH (20:48)
--- NOTE | 2022-05-11 22:00 | NUR ---
GPS: Admitted to unit earlier a 56 yr.old female who was medically cleared in the E.R. who's already on a 14 day hold for GD. Pt.will be under the care of /GITA Stewart. Pt.arrived via gurney and was assisted to her bed. Pt.is somewhat sedated due to receiving IM's in the E.R. Pt.is uncooperative during admission process. Refuses to sign papers/refuses to be interviewed,refuses vital signs check,refuses body check and refuses blood sugar check. Pt.went to sleep right away. Pt's rights booklet placed at pt's table. Safe environment provided. Safety checks Q15 minutes initiated. Will continue to monitor. Pt.not aggressive at this time.
--- NOTE | 2022-05-12 02:52 | NUR ---
GPS: Pt.is awake at this time. Observed to be talking to self. Delusional,non-sensical. Encouraged to go back to sleep. Refused prn meds when offered. Re-directed prn. Will continue to monitor for further escalation of behavior.
--- NOTE | 2022-05-12 04:06 | NUR ---
GPS: Pt.has been out of her room few times and has been asking for food. Easily agitated when being re-directed. Continues to be delusional and trying to test limits. Continues to refuse prn med. Quiet environment provided to facilitate sleep. Will continue to monitor.
[2022-05-12] MEDS: BLOOD SUGAR DIAGNOSTIC 1 EACH STRIP VI SCH ×2 (06:06→11:30)
--- NOTE | 2022-05-12 06:18 | NUR ---
GPS: Pt.refused blood sugar check at this time despite numerous attempts by staff. Remains delusional,easily irritable,intrusive and responding to internal stimuli. Re-directed frequently. No increased agitation noted. Poor insight to her mental illness. Safety emphasized. Will continue to monitor behavior.
[2022-05-12 07:33] VITALS: BP 108/75
--- NOTE | 2022-05-12 07:59 | NUR ---
Gps/Crown Pouncer- Pacing back and forth the hallway, singing out loud, talking to herself, needed redirections from time to time , follow simple direction .
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
[2022-05-12 16:10] VITALS: BP 98/73
[2022-05-12] MEDS: OXCARBAZEPINE 150 MG TABLET PO SCH (17:28)
[2022-05-12 19:58] VITALS: BP 133/79
[2022-05-12] MEDS: LORAZEPAM 0.5 MG TABLET PO PRN (20:14)
[2022-05-12] MEDS: ATORVASTATIN 40 MG TABLET PO SCH (20:14)
[2022-05-12] MEDS: OLANZAPINE 5 MG TABLET PO SCH ×3 (20:28→21:16)
--- NOTE | 2022-05-13 05:08 | NUR ---
Received patient ,pacing up and down the brenner. Verbally arguing at times with another patient that was sitting in a gisel chair. It is noticed that the patient is responding to internal stimuli and non stop rambles or sings.. This patient is hyperverbal with tangental speech. This writer technical publications is unable to engage in any meaningful conversation with her. At the start of the shift, the patient refused to take medications. But after encouragement and offering of snacks to go along with the medications, the patient agreed. The patient took a shower in the middle of the night and has slept 0 hours. She sings, while walking around the unit, has poor impulse control , no situational awareness but can be momentarily redirected. Safety Stratiges are in place . Continuing to monitor for compliance with medications and the unit rules, plus any s/s of behavior escalation.
--- NOTE | 2022-05-13 08:49 | NUR ---
Gps/Prepared Foods Supervisor- Patient sleeping during the initial rounds, in no sign of any distress. Per report patient did not sleep last night , will monitor sleeping hours.
[2022-05-13] MEDS: OXCARBAZEPINE 150 MG TABLET PO SCH ×2 (10:03→18:17)
[2022-05-13] MEDS: METFORMIN HCL 500 MG TABLET PO SCH (10:04)
--- NOTE | 2022-05-13 10:10 | NUR ---
Gps/Business Line Controller-Patient awake, ate late breakfast . Reviewed routine medication , hesitancy noted, claimed she does not take any psychotropic medications, it does not agree with her, asking to talk to her previous Psychiatrist. After prompting, patient decided to take her meds.
--- NOTE | 2022-05-13 11:00 | NUR ---
Gps/Supervisor Commissary Production- Patient agreed to have her hair cut in front of the 3 staff, offered to shower after , refused at this time, will re offer at a later times. Patient needing redirections, kept coming inside the Nurses station. Encouraged to attend and participate in her group tx.
[2022-05-13 16:00] VITALS: BP 96/39
--- NOTE | 2022-05-13 18:00 | NUR ---
Gps/Insurance Sales Agent- Patient asleep from 1500 -1800, awakened for late dinner, claimed she had a good nap . Compliant with her pm meds.
[2022-05-13] MEDS: OLANZAPINE 5 MG TABLET PO SCH (18:15)
[2022-05-13 19:53] VITALS: BP 128/60
[2022-05-13] MEDS ORDERED: OLANZAPINE 10 MG VIAL IM ONE (20:15)
[2022-05-13] MEDS: ATORVASTATIN 40 MG TABLET PO SCH (20:34)
[2022-05-13] MEDS: LORAZEPAM 0.5 MG TABLET PO PRN (20:34)
--- NOTE | 2022-05-14 00:35 | NUR ---
Received patient at the start of the shift, walking into the nurses area, disregarding the unit rules and loudly rambling at the staff making nonsensical and delusional statements. This radio script writer tried to redirect her, calm her and distract her. The patient followed staff and peers around the unit, yelling profanities and showing no situational awareness or impulse control. The patients behavior continued to elevate , she started slamming doors and yelling " Your a cunt ". The covering SUPERVISOR FISH BAIT PROCESSING was notified at that time , 2009, and an order was received for a one time IM Injection of Zyprexa if needed. When the shot was ready, this radio script writer noticed the patient was beginning to calm down. Fine Grader decided to use the least restrictive means , and has not given the injection so far. As of late , the patient decided to " Try to go to sleep ". Fine Grader is monitoring the patient closely for any behavior escalation. Safety Stratiges are in place. The plan will be to administer the injection , only if absolutely necessary, and least restrictive means possible are ineffective.
--- NOTE | 2022-05-14 04:24 | NUR ---
GPS NOTE: The patient has been coming out of her room on and off during the night, demanding things such as Milk, Ensure, Food, Perfume, Lotion, Jacket, Pants, a different shirt Etc... The staff and this casualty underwriter have been very clear in establishing limits which the patient has had zero consideration. At 0400, this patient was out of her room , demanding more items. When they were denied, the patient then begun to hop up and down, yelling and posturing in this writers face and verbally threatened violence . At that point, security was called and the IM injection of Zyprexa was administered. The patient tolerated it well, without resistance. The VS are stable and the patient is in bed, awake but quiet. Many opportunities were provided for this patient to control her behavior, but she has demonstrated that she been unable and struggling with that throughout this shift. The patient was continuing to be disruptive to the unit and a threat to the staff. Safety Stratiges are in place and close monitoring for further behavior escalation and paranoid delusions are ongoing.
[2022-05-14 07:39] VITALS: BP 127/51
[2022-05-14] MEDS: LORAZEPAM 0.5 MG TABLET PO PRN ×2 (07:49→17:02)
[2022-05-14] MEDS: METFORMIN HCL 500 MG TABLET PO SCH (08:35)
[2022-05-14] MEDS: OLANZAPINE 5 MG TABLET PO SCH ×2 (08:35→17:02)
[2022-05-14] MEDS: OXCARBAZEPINE 150 MG TABLET PO SCH (08:35)
[2022-05-14] MEDS ORDERED: OXCARBAZEPINE 150 MG TABLET PO SCH (13:00)
[2022-05-14] MEDS: OXCARBAZEPINE 300 MG TABLET PO SCH ×2 (13:12→17:02)
--- NOTE | 2022-05-14 13:51 | NUR ---
GPS: Nursing Notes: Thought Disorder: Patient is awake and responding to her name, labile, unpredictable behavior, loud and angry affect, verbal abusive toward staff, resistant with nursing care, threatening staff, using profanities toward staff, redirected during shift, A/Ox3, resistant with nursing care, unable to formulate a viable plan for self care, unkempt appearance, disruptive by getting into nursing station, impaired judgment,continue with treatment plan.
--- NOTE | 2022-05-14 15:05 | NUR ---
PILAR Initial Discharge Note: Pt is admitted to [facility]. Pt is currently homeless. Pt is unable to ascertain family contact. Per pt's face sheet, person to notify is Dary ([phone]). PILAR will work with pt, family and MD to ensure a safe and proper discharge plan.
--- NOTE | 2022-05-14 15:20 | NUR ---
Firearms Report: Manager Erp completed and submitted a [employer] firearms report for 5150 grave disability certifications. A copy of report has been placed in patient chart.
[2022-05-14 16:12] VITALS: BP 118/53
[2022-05-14 19:57] VITALS: BP 124/54
[2022-05-14] MEDS: ATORVASTATIN 40 MG TABLET PO SCH (21:51)
[2022-05-15 08:30] VITALS: BP 122/65
[2022-05-15] MEDS: LORAZEPAM 0.5 MG TABLET PO PRN (08:51)
[2022-05-15] MEDS: OLANZAPINE 5 MG TABLET PO SCH ×3 (08:51→22:29)
[2022-05-15] MEDS: METFORMIN HCL 500 MG TABLET PO SCH (08:51)
[2022-05-15] MEDS: OXCARBAZEPINE 300 MG TABLET PO SCH ×3 (08:52→22:30)
--- NOTE | 2022-05-15 11:04 | NUR ---
PT [facility] 14 DAY HOLD HEARING DONE TODAY AND WITH APPROVE PROBABLE CAUSE OF GRAVE DISABILITY ONLY. PT DID NOT PARTICIPATE WITH THE HEARING.
--- NOTE | 2022-05-15 12:45 | NUR ---
GPS: Nursing Notes: Thought Disorder: Patient is awake and responding to her name, unpredictable behavior, loud and pressured speech at times, threatening staff, verbal abusive toward staff, gets easily irritable when her demands are not met immediately, impaired judgment, poor impulse control at times, unable to formulate a viable plan for self care, unkempt appearance, disorganized, continue to monitor for safety, continue with treatment plan.
[2022-05-15 15:17] VITALS: BP 98/51
[2022-05-15 19:49] VITALS: BP 101/52
[2022-05-15] MEDS: ATORVASTATIN 40 MG TABLET PO SCH (22:29)
[2022-05-16 07:30] VITALS: BP 127/67
[2022-05-16] MEDS: OXCARBAZEPINE 300 MG TABLET PO SCH ×3 (08:43→20:21)
[2022-05-16] MEDS: METFORMIN HCL 500 MG TABLET PO SCH (08:43)
[2022-05-16] MEDS: OLANZAPINE 5 MG TABLET PO SCH ×3 (08:43→20:20)
--- NOTE | 2022-05-16 12:37 | NUR ---
GPS: PT ALMOST REFUSED TAKING HER 1300 MEDICATION DOSE OF TRILEPTAL AND ZYPREXA. PT ENCOURAGED BY IT APPLICATION ADMINISTRATOR. AFTER GOING OUT OF ROOM, HEARD PT MAKING ONE LOUD NOISE TO BRING OUT FRUSTRATION. PT EASILY GETS UPSET.
[2022-05-16 16:00] VITALS: BP 144/54
[2022-05-16] MEDS: LORAZEPAM 0.5 MG TABLET PO PRN (18:30)
--- NOTE | 2022-05-16 18:31 | NUR ---
GPS: PT FEELS ANXIOUS, PACING THE HALLWAY, REQUESTED MEDICATION FOR ANXIETY. PER PT "I FEEL A LITTLE BIT ANXIOUS FROM NO APPARENT REASON". PT OFFERED ATIVAN 0.5MG PO AND TOLERATED WELL BY PT.
[2022-05-16 20:00] VITALS: BP 106/71
[2022-05-16] MEDS: ATORVASTATIN 40 MG TABLET PO SCH (20:21)
[2022-05-16] MEDS: TEMAZEPAM 7.5 MG CAPSULE PO PRN (21:30)
[2022-05-16 21:46] VITALS: BP 117/77
--- NOTE | 2022-05-17 06:05 | NUR ---
Received to care at start of shift, intrusive, hyperverbal, and attention seeking. Calmed down a bit after taking her medications, but remained somewhat intrusive. She went to sleep after taking Restoril. As of now, she continues to sleep. No distress noted.
[2022-05-17 07:49] VITALS: BP 127/68
[2022-05-17] MEDS: OXCARBAZEPINE 300 MG TABLET PO SCH ×3 (09:07→20:20)
[2022-05-17] MEDS: OLANZAPINE 5 MG TABLET PO SCH ×3 (09:07→20:20)
[2022-05-17] MEDS: METFORMIN HCL 500 MG TABLET PO SCH (09:07)
--- NOTE | 2022-05-17 16:10 | NUR ---
Received patient sleeping in her room. A/O X 2 to person. Pt. is sociable, intrusive, sings popular songs, word salad at times Pt. stated "I had to go when the machine started, I've noticed you can't drive because you were thirsty". Pt. is compliant with medications and cooperative with care. Pt. is encourage to verbalize concerns. Fall and safety precautions implemented.
[2022-05-17 16:21] VITALS: BP 122/72
[2022-05-17] MEDS: LORAZEPAM 0.5 MG TABLET PO PRN (20:20)
[2022-05-17] MEDS: ATORVASTATIN 40 MG TABLET PO SCH (20:21)
[2022-05-18 07:30] VITALS: BP 123/49
[2022-05-18] MEDS: METFORMIN HCL 500 MG TABLET PO SCH (09:54)
[2022-05-18] MEDS: OLANZAPINE 5 MG TABLET PO SCH ×3 (09:54→20:38)
[2022-05-18] MEDS: OXCARBAZEPINE 300 MG TABLET PO SCH ×3 (09:54→20:39)
[2022-05-18 17:02] VITALS: BP 115/48
--- NOTE | 2022-05-18 17:59 | NUR ---
patient remains very bizarre behavior as RIS LAUGHING IN APPROIATELY, scattered thoughts. P asking for sugar all day long have to set limits with Marylu, affect needy , mood labile.Poor insight and impulse control needs a lot of redirection
[2022-05-18] MEDS: ATORVASTATIN 40 MG TABLET PO SCH (20:38)
[2022-05-18 20:46] VITALS: BP 132/72
[2022-05-18] MEDS: TEMAZEPAM 7.5 MG CAPSULE PO PRN (21:47)
[2022-05-19] MEDS: LORAZEPAM 0.5 MG TABLET PO PRN (02:26)
--- NOTE | 2022-05-19 05:55 | NUR ---
Received to care, wandering the unit, talking to self, guarded and suspicious. Difficult to direct, at times. PRN Restoril given for insomnia, but she refused to go to sleep, voicing multiple delusional statements. [place] cussing in her room, and in hallways. Threw juice cups and sugar packets in her toilet. Rapid cycling in her speech, going from one subject to another. PRN Ativan was offered, but she refused, finally taking it at 0226. She went to sleep about 0330, and continues to sleep. No distress noted, at this time.
[2022-05-19] MEDS: OXCARBAZEPINE 300 MG TABLET PO SCH ×3 (09:19→22:26)
[2022-05-19] MEDS: OLANZAPINE 5 MG TABLET PO SCH ×3 (09:19→22:27)
[2022-05-19] MEDS: METFORMIN HCL 500 MG TABLET PO SCH (09:20)
[2022-05-19 16:07] VITALS: BP 114/45
--- NOTE | 2022-05-19 17:55 | NUR ---
Received in her room AAO X3, pacing in the hallway at times, talking to self, guarded and suspicious.Required redirection, and continues to sleep on and off. Constantly asking for coffee and water,Compliant taken her Meds No distress noted, will continue to monitor for comfort and safety.
[2022-05-19 20:00] VITALS: BP 115/52
[2022-05-19] MEDS: ATORVASTATIN 40 MG TABLET PO SCH (22:26)
--- NOTE | 2022-05-20 05:23 | NUR ---
Received patient in bed, stayed most the night in bed, goes to toilet for bowel and bladder eliminations. Patient uncooperative with medications, takes lot of encouragement before she takes her medications. Patient took her meds after multiple encouragement, cont to monitor.
[2022-05-20 07:36] VITALS: BP 117/60
[2022-05-20] MEDS: OXCARBAZEPINE 300 MG TABLET PO SCH ×3 (09:24→20:40)
[2022-05-20] MEDS: METFORMIN HCL 500 MG TABLET PO SCH (09:25)
[2022-05-20] MEDS: OLANZAPINE 5 MG TABLET PO SCH ×3 (09:25→20:41)
--- NOTE | 2022-05-20 15:53 | NUR ---
remains isolativE AND SLEEPING MOST OF SHIFT EXCEPT FOR FOODS. POOR INSIGHT, NO S/S OF ELOPEMENT OR VERBALIZING IT CONTINUE TO9 MONITOR FOR SAFETY
[2022-05-20 16:29] VITALS: BP 112/53
--- NOTE | 2022-05-20 18:20 | NUR ---
Patient remains bizarre and needy eating all the times need frequent limit setting, still scattered and poor insight
[2022-05-20 19:59] VITALS: BP 119/57
--- NOTE | 2022-05-20 20:30 | NUR ---
received patient in the hallway. she is noted A/O x 1 to 2, she is noted hyperverbal, with disorganized speech and word salad. she was observed laughing inappropriately. Pt is labile. she is intrusive at times. she has impaired insight and judgment as to the reason for her admission to [facility]. However, she is redirectable and she is compliant with medication regiment and ADLs. patient is reassured for her safety. safety. safety and fall precautions are in place. V/S stable, PO fluids and snacks were given. will continue to monitor.
[2022-05-20] MEDS: ATORVASTATIN 40 MG TABLET PO SCH (20:41)
[2022-05-21 08:03] VITALS: BP 124/65
[2022-05-21] MEDS: METFORMIN HCL 500 MG TABLET PO SCH (09:26)
[2022-05-21] MEDS: OXCARBAZEPINE 300 MG TABLET PO SCH ×3 (09:26→20:42)
[2022-05-21] MEDS: OLANZAPINE 5 MG TABLET PO SCH ×3 (09:26→20:42)
--- NOTE | 2022-05-21 11:08 | NUR ---
SW Discharge Update: Pt is accepted to [facility] [address] [place] [address] ([phone]) upon discharge confirmed by santosh Cervantes ([phone]).
[2022-05-21 16:36] VITALS: BP 131/64
--- NOTE | 2022-05-21 18:56 | NUR ---
patient remains [id number] and RIS singing and at frequently no agitation noted , no peer interaction continue to monitor for safetyt,
[2022-05-21 19:54] VITALS: BP 127/62
--- NOTE | 2022-05-21 20:30 | NUR ---
received patient pacing the hallway. she is noted A/O x 2, she is noted hyperverbal, with disorganized speech and word salad. Pt is labile. she is redirectable and she is compliant with medication regiment and ADLs. patient is is reassured for her safety. safety. safety and fall precautions are in place. V/S stable, PO fluids and snacks were given. will continue to monitor.
[2022-05-21] MEDS: ATORVASTATIN 40 MG TABLET PO SCH (20:42)
[2022-05-22] MEDS: TEMAZEPAM 7.5 MG CAPSULE PO PRN (00:10)
--- NOTE | 2022-05-22 00:10 | NUR ---
PATIENT NOTED PACING THE HALLWAY. SHE STATED, "I AM HEARING VOICES. CAN I TAKE RISPERIDONE?" PATIENT WAS REASSURED FOR HER SAFETY, TEMAZEPAM 7.5MG PO PRN WAS GIVEN FOR INSOMNIA, WILL CONTINUE TO MONITOR.
--- NOTE | 2022-05-22 07:19 | NUR ---
PATIENT DID NOT SLEEP LAST NIGHT. TEMAZEPAM 7.5MG WAS NOT EFFECTIVE. SHE WAS OBSERVED PACING THE HALLWAY FEW TIMES. SINGING AND TALKING TO HERSELF A TIMES. PT IS REDIRECTABLE. NO AGGRESSIVE BX WAS NOTED.
[2022-05-22 07:30] VITALS: BP 129/69
[2022-05-22] MEDS: OXCARBAZEPINE 300 MG TABLET PO SCH ×3 (08:34→20:56)
[2022-05-22] MEDS: OLANZAPINE 5 MG TABLET PO SCH ×2 (08:35→12:54)
[2022-05-22] MEDS: METFORMIN HCL 500 MG TABLET PO SCH (08:35)
[2022-05-22] MEDS: LORAZEPAM 0.5 MG TABLET PO PRN (13:00)
[2022-05-22 15:46] VITALS: BP 110/60
--- NOTE | 2022-05-22 16:21 | NUR ---
patient is wandering the unit, talking to self, guarded and suspicious. Difficult to direct, voicing multiple delusional statements. has been going to 3 patient's room ate from there lunch tray. when redirect patient out from other peers room patient become agitated pressure in her speech, going from one subject to another. PRN Ativan was offered. placed patient on [address] notified.
[2022-05-22] MEDS: HALOPERIDOL 5 MG TABLET PO SCH ×2 (20:56→21:00)
[2022-05-22] MEDS: ATORVASTATIN 40 MG TABLET PO SCH (20:56)
[2022-05-23 07:30] VITALS: BP 112/54
[2022-05-23] MEDS: OXCARBAZEPINE 300 MG TABLET PO SCH ×3 (08:39→20:36)
[2022-05-23] MEDS: METFORMIN HCL 500 MG TABLET PO SCH (08:39)
[2022-05-23] MEDS: OLANZAPINE 5 MG TABLET PO SCH ×2 (08:39→13:15)
--- NOTE | 2022-05-23 15:51 | NUR ---
Received patient awake in her room. A/O X 2 to person, place. Pt. is delusional "I won the lottery once and the money is in my pillow case" Pt. sings popular songs most of the time, and laughs at her own comments. Pt. is compliant with medications and nursing care. Pt. requires minimal assistance with ADL, needs to be redirect at times. Pt. has few episodes of incontinence. Pt. is encourage to verbalize feelings and emotions. Fall and safety precautions implemented.
[2022-05-23 16:43] VITALS: BP 118/58
[2022-05-23] MEDS: HALOPERIDOL LACTATE 10 MG/5 ML ORAL SOLUTION UDC PO SCH (17:19)
[2022-05-23] MEDS: ATORVASTATIN 40 MG TABLET PO SCH (20:36)
[2022-05-23 20:42] VITALS: BP 117/57
[2022-05-24] MEDS: OXCARBAZEPINE 300 MG TABLET PO SCH ×3 (05:33→21:04)
[2022-05-24 07:30] VITALS: BP 125/68
[2022-05-24] MEDS: HALOPERIDOL LACTATE 10 MG/5 ML ORAL SOLUTION UDC PO SCH ×3 (08:43→17:35)
[2022-05-24] MEDS: METFORMIN HCL 500 MG TABLET PO SCH (08:44)
[2022-05-24] MEDS: OLANZAPINE 5 MG TABLET PO SCH ×2 (08:44→13:05)
--- NOTE | 2022-05-24 14:54 | NUR ---
Discharge Update: Pt is accepted to [facility] [address] [place] [address] ([phone]) upon discharge confirmed by santosh Cervantes ([phone]). Pt stated she does not have any family contact.
--- NOTE | 2022-05-24 15:24 | NUR ---
Received patient awake in her room. A/O X 2 to person, place. Pt. is delusional "I can't keep taking those pills because they affect the left side of my brain and I need it for [facility]". "I need to talk to the doctor about my promotion". Pt. is cooperative, sociable, pleasant most of time. Patient is encourage to verbalize concerns. Fall and safety precautions implemented.
[2022-05-24 15:33] VITALS: BP 117/63
[2022-05-24] MEDS: LORAZEPAM 0.5 MG TABLET PO PRN (19:58)
[2022-05-24 20:00] VITALS: BP 130/76
[2022-05-24] MEDS: ATORVASTATIN 40 MG TABLET PO SCH (21:04)
[2022-05-24] MEDS: TEMAZEPAM 7.5 MG CAPSULE PO PRN (22:42)
[2022-05-25] MEDS: LORAZEPAM 0.5 MG TABLET PO PRN (02:51)
--- NOTE | 2022-05-25 06:31 | NUR ---
Received to care, pleasant, needy, attention seeking, and hyperverbal, requiring frequent redirection. Compliant with medications and staff direction. Mood swings observed, during the shift: she was talking one minute, then laughing inappropriately the next. PRN Restoril and Ativan were given during the night. She slept well, and continues to sleep. No distress noted.
[2022-05-25 07:30] VITALS: BP 161/62
[2022-05-25] MEDS: OXCARBAZEPINE 300 MG TABLET PO SCH ×3 (08:50→20:28)
[2022-05-25] MEDS: METFORMIN HCL 500 MG TABLET PO SCH (08:50)
[2022-05-25] MEDS: OLANZAPINE 5 MG TABLET PO SCH ×2 (08:50→12:20)
[2022-05-25] MEDS: HALOPERIDOL LACTATE 10 MG/5 ML ORAL SOLUTION UDC PO SCH ×3 (09:00→16:32)
--- NOTE | 2022-05-25 11:00 | NUR ---
Gps/Claims Support Specialist- Pacing back and forth the hallway , responding to internal stimuli , talking to herself. Easily gets distracted, encouraged participation in her group therapy Offered to shower, refused at this time , asked to groomed self , able to provide own hygiene, after set up and prompting.
[2022-05-25 16:26] VITALS: BP 103/56
[2022-05-25 19:46] VITALS: BP 114/53
[2022-05-25] MEDS: ATORVASTATIN 40 MG TABLET PO SCH (20:28)
[2022-05-25] MEDS: TEMAZEPAM 7.5 MG CAPSULE PO PRN (22:07)
[2022-05-26] MEDS: LORAZEPAM 0.5 MG TABLET PO PRN (00:33)
[2022-05-26 07:30] VITALS: BP 141/68
[2022-05-26] MEDS: METFORMIN HCL 500 MG TABLET PO SCH (08:14)
[2022-05-26] MEDS: HALOPERIDOL LACTATE 10 MG/5 ML ORAL SOLUTION UDC PO SCH ×3 (08:14→16:54)
[2022-05-26] MEDS: OXCARBAZEPINE 300 MG TABLET PO SCH ×3 (08:15→20:51)
[2022-05-26] MEDS: OLANZAPINE 5 MG TABLET PO SCH ×2 (08:15→13:20)
--- NOTE | 2022-05-26 15:05 | NUR ---
Gps/Oil Burner- Stayed in her room most of the day, even ate breakfast and lunch in her room . Encouraged participation in her group therapy, had been quiet , compliant with her routine am meds. Still requesting to talk to Medical Doctor per patient, wants to discuss her diabetes , requesting diabetic education.
[2022-05-26 16:00] VITALS: BP 141/58
[2022-05-26 20:00] VITALS: BP 118/53
[2022-05-26] MEDS: ATORVASTATIN 40 MG TABLET PO SCH (20:51)
--- NOTE | 2022-05-26 21:30 | NUR ---
received patient in bed sleeping but easily arousable. she is calm and pleasant upon approched. she was able to comply with her [facility] medication regiment.her V/S are stable. PO fluids and snacks were given to patient. she is reassure for her safety. safety and fall precaution in place. will continue to monitor.
[2022-05-27] MEDS: HALOPERIDOL LACTATE 10 MG/5 ML ORAL SOLUTION UDC PO SCH ×3 (08:04→16:31)
[2022-05-27] MEDS: OXCARBAZEPINE 300 MG TABLET PO SCH ×3 (08:04→20:29)
[2022-05-27] MEDS: METFORMIN HCL 500 MG TABLET PO SCH (08:04)
[2022-05-27] MEDS: OLANZAPINE 5 MG TABLET PO SCH ×2 (08:04→12:14)
--- NOTE | 2022-05-27 12:47 | NUR ---
Gps/Cable Mechanic- Stayed in her room in bed most of the morning, eating meals in her room, encouraged attending her group therapy., start participating.Came out of her room requesting ativan po. informed routine pm meds. just administered, will check on her in few minutes , noted patient went back to bed , sleeping. Monitor behavior, and safety.
[2022-05-27 16:18] VITALS: BP 128/62
[2022-05-27 19:52] VITALS: BP 121/68
[2022-05-27] MEDS: ATORVASTATIN 40 MG TABLET PO SCH (20:29)
--- NOTE | 2022-05-28 04:04 | NUR ---
Received patient in the hallway asking for tea. Patient conversing with typewriter ribbon winder however don't convey any meaning.Patient responding to internal stimuli, re-orient to reality. patient redirectable at times. Compliant with medications and care. Needs provided and met. Tamazepam given. Effective. Patient slept un interrupted during shift. frequent rounding observed. Fall and safety strategies in place.
[2022-05-28 08:12] VITALS: BP 133/71
[2022-05-28] MEDS: HALOPERIDOL LACTATE 10 MG/5 ML ORAL SOLUTION UDC PO SCH ×3 (08:33→16:22)
[2022-05-28] MEDS: OLANZAPINE 5 MG TABLET PO SCH ×2 (08:33→12:35)
[2022-05-28] MEDS: OXCARBAZEPINE 300 MG TABLET PO SCH ×3 (08:33→21:06)
[2022-05-28] MEDS: METFORMIN HCL 500 MG TABLET PO SCH (08:33)
--- NOTE | 2022-05-28 10:17 | NUR ---
PILAR Discharge Note: Pt will be discharged to [facility] [address] [place] [address] ([phone]) via Ambulance transportation at 1PM. PILAR spoke with admin coordinator, Helen and Daron at the facility who states they are ready to accept the patient today. Pt is aware and agreeable with discharge plans. Pt is alert and oriented x2(name and location), is unable to plan for self-care at this time; however, is willing to accept care at SNF. Pt denies any suicidal or homicidal ideation. Pt will follow-up at the facility with Psychiatrist, Dr. St and Dr. School Lunch Manager, Dr. Schultz. Pt presents with calm mood and congruent affect. PHARMACY: [facility] ([phone]) [address] [place] [address].
--- NOTE | 2022-05-28 14:09 | NUR ---
GPS: Nursing Notes: Thought Disorder: Patient is awake and responding to her name, isolative in her room at times, needs prompting to participate in therapeutic groups, cooperative with nursing care, following staff directions, internally preoccupied at times, unable to formulate a viable plan for self care, continue to monitor for safety, continue with treatment plan.
[2022-05-28 16:30] VITALS: BP 97/52
[2022-05-28] MEDS: ATORVASTATIN 40 MG TABLET PO SCH (21:06)
[2022-05-28] MEDS: TEMAZEPAM 7.5 MG CAPSULE PO PRN (21:06)
[2022-05-29 07:30] VITALS: BP 132/69
--- NOTE | 2022-05-29 09:08 | NUR ---
PILAR Discharge Note: Pt will be discharged to [facility] [address] [place] [address] ([phone]) via Ambulance transportation at 11AM. PILAR spoke with admin coordinator, Lit at the facility who states they are ready to accept the patient today. Pt is aware and agreeable with the discharge plan. Pt has a family contact, Dary ([phone]). However, pt stated she does not want SW to contact family. Dary has not contacted this mortgage underwriter. Pt is alert and oriented x2(name and location), is unable to plan for self-care at this time; however, is willing to accept care at SNF. Pt denies any suicidal or homicidal ideation. Pt will follow-up at the facility with Psychiatrist, Dr. St and Dr. Detective [place], Dr. Schultz. Pt presents with calm mood and congruent affect. Pt's PHARMACY: [facility] ([phone]) [address] [place] [address].
[2022-05-29] MEDS: HALOPERIDOL LACTATE 10 MG/5 ML ORAL SOLUTION UDC PO SCH (09:35)
[2022-05-29] MEDS: OLANZAPINE 5 MG TABLET PO SCH (09:35)
[2022-05-29] MEDS: METFORMIN HCL 500 MG TABLET PO SCH (09:36)
[2022-05-29] MEDS: OXCARBAZEPINE 300 MG TABLET PO SCH (09:36)
--- NOTE | 2022-05-29 12:30 | NUR ---
GPS: Nursing Notes: Discharge Notes: Patient is awake and responding to her name, cooperative with nursing care, compliant with her medications, following staff directions, denies SI/HI, denies AH/VH, denies pain or discomfort, discharge to [facility] at [address] [place], [place] [id number] , report given to Mainor - RN supervisor ship maintenance services, transported to facility via ambulance, took all her belongings with her. Patient will follow-up at the facility with Psychiatrist, Dr. St and Dr. Motorcycle Mechanic, Dr. Schultz for aftercare.
== END 2022-05-29 11:30 | DRG 885 ==
LOC: ER 14:03 → GPS 18:48
PROVIDERS: ADMIT Nurse Practitioner Psychiatric/Mental Health; ATTEND Nurse Practitioner Family
DX: F25.0 Schizoaffective disorder, bipolar type (principal); E11.65 Type 2 diabetes mellitus with hyperglycemia; Z59.00 Homelessness unspecified; F29 Unspecified psychosis not due to a substance or known physiological condition; Z20.822 Contact with and (suspected) exposure to COVID-19; F19.90 Other psychoactive substance use, unspecified, uncomplicated; Z79.4 Long term (current) use of insulin
CPT/HCPCS: 36415; 85025; 93005; 97161; A4663; G0480; J1815; J2060; J2250; J2358; J3486